=== PATIENT | female | born 1995 | race Caucasian/White ===

== ENCOUNTER 2016-11-20 23:04 | Emergency (ER) | payer BC, MEDICAID ==
[~2016-11-20] VITALS: Ht 170.2 cm; Wt 63.6 kg
[2016-11-20 23:16] VITALS: Ht 170.2 cm; Wt 63.6 kg
[2016-11-20] MEDS ORDERED: DIPHTH/TET/ACEL PERTUSS (ADULT) 0.5 ML VIAL IM* ONE (23:30)
[2016-11-21] MEDS ORDERED: LIDOCAINE 1% (MDV) 20 ML INJ SC ONE
[2016-11-21] MEDS ORDERED: LIDOCAINE 1%/EPI 30 ML INJ INJ STA (00:02)
[2016-11-21] MEDS ORDERED: LIDOCAINE 2%/EPI MPF (SDV) 20 ML VIAL INJ ONE (00:30)
--- NOTE | 2016-11-21 00:52 | RADRPT ---
PROCEDURE: XR Forearm. CLINICAL INDICATION: Laceration. Possible retained foreign body TECHNIQUE: AP and lateral views of the left forearm were obtained. COMPARISON: No prior studies are available for comparison. FINDINGS: There is normal mineralization and alignment. The radius and ulna are unremarkable. No fracture or o sseous lesion is identified. The elbow and wrist joints are normally aligned. A large soft tissue de fect involving the lateral mid forearm is compatible with laceration. There is no evidence of radio paque foreign body. RPTAT:HJJR IMPRESSION: Large soft tissue laceration involving the lateral aspect of the mid forearm without associated radi opaque foreign body or osseous abnormality. Physician Pattie Date Time Electronically viewed and signed by Physician Pattie on 11/21/2016 00:52 /
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
[2016-11-21] MEDS ORDERED: SULF1TAB31 PO (01:50)
[2016-11-21] MEDS ORDERED: CEPH-443 PO (01:50)
[2016-11-21] MEDS ORDERED: TRIMETHOPRIM/SULFAMETHOX (DS) TAB PO ONE (02:00)
[2016-11-21] MEDS ORDERED: CEPHALEXIN 500 MG CAP PO ONE (02:00)
[2016-11-21 08:54] VITALS: BP 127/79; PULSE 81; RESP 18; TEMP 98.2
== END 2016-11-21 08:56 | disposition home or self-care (01) ==
LOC: E/R 23:04
DX: S51.811A Laceration without foreign body of right forearm, initial encounter (principal); F10.10 Alcohol abuse, uncomplicated; F17.210 Nicotine dependence, cigarettes, uncomplicated; W25.XXXA Contact with sharp glass, initial encounter; Y92.009 Unspecified place in unspecified non-institutional (private) residence as the place of occurrence of the external cause; Z71.6 Tobacco abuse counseling; Z23 Encounter for immunization
CPT/HCPCS: 73090; 90471; 90715